=== PATIENT | female | born 1945 | race Caucasian/White ===

== ENCOUNTER 2017-04-07 09:42 | Inpatient (IN) ==
[2017-04-08] MEDS ORDERED: *HR* OxyCODONE/APAP 7.5/325 TABLET PO PRN (15:20)
[2017-04-08] MEDS: Sennosides/Docusate Sodium TABLET PO PRN (16:17)
[2017-04-08] MEDS: *HR* OxyCODONE/APAP 7.5/325 TABLET PO PRN (16:18)
[2017-04-08] MEDS: APIXABAN 5 MG TABLET PO SCH (20:32)
[2017-04-09] MEDS: *HR* OxyCODONE/APAP 7.5/325 TABLET PO PRN ×2 (04:09→17:25)
[2017-04-09 05:45] LABS: INR 1.6; Prothrombin Time 17.5 Seconds (9.4-12.1)
[2017-04-09 05:48] LABS: Activated Partial Thrombo Time 28.9 Seconds (26.0-36.0)
[2017-04-09 05:53] LABS: Calcium 8.3 mg/dL (8.6-10.8); Potassium 5.2 mEq/L (3.5-4.5)
[2017-04-09 05:54] LABS: Basophils % 0.3 %; Eosinophils # 0.1 K/mcL (0.0-0.6); Eosinophils % 1.9 %; Hematocrit 25.7 % (35.3-44.9); Hemoglobin 8.6 g/dL (11.5-15.4); Immature Granulocytes % 0.7 % (0-4); Lymphocytes # 1.7 K/mcL (0.6-4.6); Lymphocytes % 28.9 %; Mean Corpuscular HGB Conc 33.5 g/dL (31.6-35.5); Mean Corpuscular Hemoglobin 32.2 pg (28.0-33.3); Mean Corpuscular Volume 96.3 fL (83.0-100.0); Mean Platelet Volume 11.7 fL (9.4-12.4); Monocytes # 0.9 K/mcL (0.0-1.3); Monocytes % 15.1 %; Neutrophils # 3.1 K/mcL (1.6-8.9); Platelet Count 116 K/mcL (140-400); Red Blood Count 2.67 M/mcL (3.82-4.97); Red Cell Distribution Width 13.8 % (11.5-14.5); Segmented Neutrophils % 53.1 %
[2017-04-09] MEDS: Sennosides/Docusate Sodium TABLET PO PRN (08:08)
[2017-04-09] MEDS: APIXABAN 5 MG TABLET PO SCH ×2 (08:09→20:25)
[2017-04-09] MEDS: Torsemide 20 MG TABLET PO SCH (08:09)
[2017-04-10 05:47] LABS: Basophils % 0.1 %; Eosinophils # 0.1 K/mcL (0.0-0.6); Eosinophils % 1.6 %; Hematocrit 27.9 % (35.3-44.9); Hemoglobin 9.2 g/dL (11.5-15.4); Immature Granulocytes % 1.1 % (0-4); Lymphocytes # 2.5 K/mcL (0.6-4.6); Lymphocytes % 32.8 %; Mean Corpuscular Hemoglobin 31.7 pg (28.0-33.3); Mean Corpuscular Volume 96.2 fL (83.0-100.0); Mean Platelet Volume 11.2 fL (9.4-12.4); Monocytes # 0.9 K/mcL (0.0-1.3); Monocytes % 12.6 %; Neutrophils # 3.9 K/mcL (1.6-8.9); Platelet Count 144 K/mcL (140-400); Red Cell Distribution Width 13.7 % (11.5-14.5); Segmented Neutrophils % 51.8 %
[2017-04-10 05:59] LABS: Calcium 8.5 mg/dL (8.6-10.8); Potassium 4.5 mEq/L (3.5-4.5)
[2017-04-10] MEDS: APIXABAN 5 MG TABLET PO SCH ×2 (08:43→20:19)
[2017-04-10] MEDS: Torsemide 20 MG TABLET PO SCH (08:43)
[2017-04-10] MEDS: *HR* OxyCODONE/APAP 7.5/325 TABLET PO PRN ×2 (08:45→20:22)
--- NOTE | 2017-04-10 15:04 | Internal Med History&Physical ---
Date of Encounter: 04/10/17 Time of Encounter: 15:02 Assessment and Plan (1) Cervical vertebral closed fracture Current visit: No Status: Acute Patient is here for rehabilitation status post her accident (2) Crush fracture of thoracic vertebra Current visit: No Status: Acute (3) Atrial fibrillation Current visit: No Status: Chronic (4) History of total right hip arthroplasty Current visit: Yes Status: Acute patient had a right total hip arthroplasty. She is here for re- Internal Medicine - H&P: HPI Chief complaint: Right hip pain with any activity Admitted From: Hospital to Hospital Transfer Plans for Post Hospital Care: Home History of present illness: Ms. Ferro is a 71 year old female Patient had a right total hip replacement for osteoarthritis Past Med Surg Social Fam HX - Past Medical History Medical history: arthritis, atrial fibrillation, coronary artery disease, hypertension, renal disease Psychiatric history: no psych history - Past Surgical History Surgical History: cholecystectomy - Social History Smoking Status: Current every day smoker Packs per day: 1/2 Smokeless Tobacco Status: No Alcohol use: none Drug use: none - Family History Mother Hx Family Endocrine Disorder: Yes (diabetes) Father Hx Family Endocrine Disorder: Yes (diabetes) Internal Medicine - H&P: Meds Meloxicam [Mobic] 15 mg PO DAILY 01/28/16 [History] Potassium Chloride [K-Tab ER] 20 meq PO DAILY 01/28/16 [History] Torsemide [Demadex] 50 mg PO DAILY 01/28/16 [History] Apixaban [Eliquis] 5 mg PO BID 04/08/17 [History] Carvedilol [Coreg] 12.5 mg PO BIDWM 04/08/17 [History] OxyCODONE/APAP 7.5/325 [Percocet 7.5/325 MG] 1 each PO Q4HR PRN 04/08/17 [ History] OxyCODONE/APAP 7.5/325 [Percocet 7.5/325 MG] 2 each PO Q4HR PRN 04/08/17 [ History] Allergies Penicillins Allergy (Verified 01/28/16 17:57) Hives All Systems PM: A 10-system review of systems was performed and is negative for pertinent findings except as documented above in the HPI. - Constitutional Vitals: Temp Pulse Resp BP Pulse Ox 97.8 F 89 18 136/71 97 04/10/17 12:00 04/10/17 13:34 04/10/17 13:34 04/10/17 13:34 04/10/17 13:34 - Head Head exam: Present: atraumatic, normal inspection, normocephalic - Neck Neck exam general surgery: Present: supple, trachea midline. Absent: lymphadenopathy - Respiratory Respiratory exam: Present: CTAB. Absent: accessory muscle use, rales, rhonchi, wheezes - Cardiovascular Cardiovascular exam: Present: RRR, +S1, +S2. Absent: diastolic murmur, gallop, rubs, systolic murmur Internal Med - H&P Results - Labs CBC & Chem 7: 04/10/17 05:20 04/10/17 05:20 Labs: Short CBC 04/10/17 Range/Units 05:20 WBC 7.5 (4.3-11.1) K/mcL Hgb 9.2 L (11.5-15.4) g/dL Hct 27.9 L (35.3-44.9) % Plt Count 144 (140-400) K/mcL Neutrophils # 3.9 (1.6-8.9) K/mcL BMP 04/10/17 05:20 Sodium 138 Potassium 4.5 Chloride 108 Carbon Dioxide 20 BUN 45 H Creatinine 1.29 H Glucose 95 Calcium 8.5 L BUNs up a little bit off to follow this.
[2017-04-11 05:37] LABS: Calcium 8.4 mg/dL (8.6-10.8); Potassium 3.9 mEq/L (3.5-4.5)
[2017-04-11] MEDS: *HR* OxyCODONE/APAP 7.5/325 TABLET PO PRN ×2 (06:23→21:40)
[2017-04-11] MEDS: Torsemide 20 MG TABLET PO SCH (08:07)
[2017-04-11] MEDS: APIXABAN 5 MG TABLET PO SCH ×2 (08:08→20:09)
--- NOTE | 2017-04-11 13:25 | Internal Med Progress Note ---
Date of Encounter: 04/11/17 Time of Encounter: 13:23 - Assessment and plan (1) Cervical vertebral closed fracture Current Visit: No Status: Acute Assessment and plan: Patient's here for her hip replacement (2) Crush fracture of thoracic vertebra Current Visit: No Status: Acute Assessment and plan: Previous injury (3) Atrial fibrillation Current Visit: No Status: Chronic Assessment and plan: This is noted .current rate is controlled. (4) History of total right hip arthroplasty Current Visit: Yes Status: Acute Assessment and plan: Asians working with a therapist for her total hip replacement - Time Spent With Patient less than 15 minutes - Subjective Interval history: Patient has no real complaints at this point she just wants to hurry up and get back - Constitutional Vitals: Temp Pulse Resp BP Pulse Ox 97.9 F 74 16 117/71 97 04/11/17 07:16 04/11/17 07:16 04/11/17 07:16 04/11/17 07:16 04/11/17 07:16 - Head Head exam: Present: normal inspection - Respiratory Respiratory exam: Present: CTAB. Absent: accessory muscle use, rales, rhonchi, wheezes - Cardiovascular Cardiovascular exam: Present: RRR, +S1, +S2. Absent: diastolic murmur, gallop, rubs, systolic murmur Internal Medicine: Result - Labs CBC & Chem 7: 04/10/17 05:20 04/11/17 05:15 Labs: BMP 04/11/17 05:15 Sodium 137 Potassium 3.9 Chloride 106 Carbon Dioxide 21 BUN 46 H Creatinine 1.35 H Glucose 97 Calcium 8.4 L Labs okay - ABG Interpretation ABG results: PT/INR, D-dimer PT 17.5 Seconds (9.4-12.1) H 04/09/17 05:00 Consult Discharge Plan - Plan Referrals: Surya Finney MD [Primary Care Provider] -
[2017-04-12] MEDS: *HR* OxyCODONE/APAP 7.5/325 TABLET PO PRN ×2 (04:43→20:25)
[2017-04-12] MEDS: Torsemide 20 MG TABLET PO SCH (07:30)
[2017-04-12] MEDS: APIXABAN 5 MG TABLET PO SCH ×2 (07:30→20:25)
[2017-04-12] MEDS: Sennosides/Docusate Sodium TABLET PO PRN (07:37)
--- NOTE | 2017-04-12 14:03 | Physical Med Progress Note ---
Date of Encounter: 04/12/17 Time of Encounter: 13:55 Physical Medicine-PN: Subj Interval history: PMR PCC note Patient was admitted for inpatient rehab following a right total hip arthroplasty. She is currently SBA with a wheeled walker 125 feet X 2. She has a 5 minute standing tolerance. She reported some nausea this am. She is progressing well with therapy. Plan for discharge to home with home health. Patient will continue with intensive PT/OT/TR. - Constitutional Vitals: Vital Signs Temp Pulse Resp BP Pulse Ox 04/12/17 12:57 85 18 103/67 97 04/12/17 06:57 98.4 F 85 18 103/67 97 04/11/17 19:59 97.5 F L 100 16 98 04/11/17 18:13 120/72 Intake and Output 04/11/17 04/12/17 04/12/17 23:59 07:59 15:59 Intake Total 120 / 120 100 / 100 240 / 240 Balance 120 / 120 100 / 100 240 / 240 Intake: Oral 120 / 120 100 / 100 240 / 240 Other: Meal Dinner Lunch Percent of Meal Consumed 95% 25% # Voids 1 1 Physical Medicine-PN: Obj Data - Labs CBC & Chem 7: 04/10/17 05:20 04/11/17 05:15 - ABG Interpretation ABG results: PT/INR, D-dimer PT 17.5 Seconds (9.4-12.1) H 04/09/17 05:00 Consult Discharge Plan - Plan Referrals: Surya Finney MD [Primary Care Provider] -
[2017-04-13] MEDS: *HR* OxyCODONE/APAP 7.5/325 TABLET PO PRN ×3 (04:35→22:08)
[2017-04-13] MEDS: Sennosides/Docusate Sodium TABLET PO PRN (04:35)
[2017-04-13] MEDS: APIXABAN 5 MG TABLET PO SCH ×2 (08:12→20:11)
[2017-04-13] MEDS: Torsemide 20 MG TABLET PO SCH (08:12)
--- NOTE | 2017-04-13 12:55 | Internal Med Progress Note ---
Date of Encounter: 04/13/17 Time of Encounter: 12:53 - Assessment and plan (1) Cervical vertebral closed fracture Current Visit: No Status: Acute Assessment and plan: Old injury (2) Crush fracture of thoracic vertebra Current Visit: No Status: Acute Assessment and plan: Old injury. (3) Atrial fibrillation Current Visit: No Status: Chronic Assessment and plan: Noted no evidence of uncontrolled heart rate (4) History of total right hip arthroplasty Current Visit: Yes Status: Acute Assessment and plan: Patient was here for the above-mentioned complaint and is taking therapy - Time Spent With Patient less than 15 minutes - Subjective Interval history: Only complaint is that the affected side. Have a scab lifted very far. But this will improve with time. She is cooperating and working with PT OT TR - Constitutional Vitals: Temp Pulse Resp BP Pulse Ox 97.3 F L 76 18 100/63 98 04/13/17 06:54 04/13/17 06:54 04/13/17 06:54 04/13/17 06:54 04/13/17 06:54 - Head Head exam: Present: atraumatic, normal inspection, normocephalic - Respiratory Respiratory exam: Present: CTAB. Absent: accessory muscle use, rales, rhonchi, wheezes - Cardiovascular Cardiovascular exam: Present: RRR, +S1, +S2. Absent: diastolic murmur, gallop, rubs, systolic murmur Internal Medicine: Result - Labs CBC & Chem 7: 04/10/17 05:20 04/11/17 05:15 Labs: BUN and creatinine are noted - ABG Interpretation ABG results: PT/INR, D-dimer PT 17.5 Seconds (9.4-12.1) H 04/09/17 05:00 Consult Discharge Plan - Plan Referrals: Surya Finney MD [Primary Care Provider] -
[2017-04-14 07:03] VITALS: BP 133/76
[2017-04-14] MEDS: APIXABAN 5 MG TABLET PO SCH (08:11)
[2017-04-14] MEDS: Torsemide 20 MG TABLET PO SCH (08:11)
--- NOTE | 2017-04-14 11:34 | Discharge Summary ---
Date of Encounter: 04/14/17 Time of Encounter: 11:32 - Discharge Diagnosis (1) Cervical vertebral closed fracture Priority: Secondary Status: Acute Qualifiers: Fracture morphology: burst- stable Qualified Code(s): S12.01XD - Stable burst fracture of first cervical vertebra, subsequent encounter for fracture with routine healing (2) Crush fracture of thoracic vertebra Priority: Secondary Status: Acute Qualifiers: Fracture healing: with routine healing Qualified Code(s): S22.008D - Other fracture of unspecified thoracic vertebra, subsequent encounter for fracture with routine healing (3) Atrial fibrillation Priority: Secondary Status: Chronic Qualifiers: Atrial fibrillation type: paroxysmal Qualified Code(s): I48.0 - Paroxysmal atrial fibrillation (4) History of total right hip arthroplasty Priority: Primary Status: Acute Comments: Patient's doing well will be discharged home today in the company of her family. She will have follow-up appointment with her surgeon and pain medication - Discharge Medications Home Medications: Meloxicam [Mobic] 15 mg PO DAILY 01/28/16 [History] Potassium Chloride [K-Tab ER] 20 meq PO DAILY 01/28/16 [History] Torsemide [Demadex] 50 mg PO DAILY 01/28/16 [History] Apixaban [Eliquis] 5 mg PO BID 04/08/17 [History] Carvedilol [Coreg] 12.5 mg PO BIDWM 04/08/17 [History] OxyCODONE/APAP 7.5/325 [Percocet 7.5/325 MG] 1 each PO Q4HR PRN 04/08/17 [ History] OxyCODONE/APAP 7.5/325 [Percocet 7.5/325 MG] 2 each PO Q4HR PRN 04/08/17 [ History] Allergies/Adverse Reactions: Allergies Penicillins Allergy (Verified 01/28/16 17:57) Hives Date of admission: 04/08/17 15:53 Primary care physician: Surya Finney MD Consults: 04/08/17 15:23 Consult to Occupational Therapy [CONS] Routine Comment: eval and tx Reason for Consult: eval and tx Consult to Physical Therapy [CONS] Routine Comment: eval and tx Reason for Consult: eval and tx Consult to Recreational Therapy [CONS] Routine Comment: Consult to Provider Relations Advocate [CONS] Routine Reason for SW Consult: discharge planning Discharging clinician: Max Schaeffer Anticipated date of discharge: 04/14/17 - Patient Status Disposition: Home Health Service Condition: Good Functional capacity at discharge: uses cane/walker Overall status at discharge: patient is progressing back to baseline - Discharge Instructions Follow Up With: Terry Pepe [Non-Partnered Physician] - 04/26/17 11:00 am Surya Finney MD [Primary Care Provider] - - Diet and Activity Activity: ambulate only with your walker Diet: advance to your usual diet Interval History: She was admitted to the rehabilitation unit status post total hip replacement and has done well Hospital course: Ms. Ferro is a 71 year old female Patient will be discharged home in company of her family today with follow-up appointment for her surgeon. - Time Spent with Patient Total time spent providing and/or coordinating discharge services: Less than 30 minutes - Constitutional Vitals: Temp Pulse Resp BP Pulse Ox 97.3 F L 86 18 133/76 98 04/14/17 07:02 04/14/17 07:02 04/14/17 07:02 04/14/17 07:02 04/14/17 07:02 - Head Head exam: Present: atraumatic, normal inspection, normocephalic - Neck Neck exam general surgery: Present: supple, trachea midline. Absent: lymphadenopathy - Respiratory Respiratory exam: Present: CTAB. Absent: accessory muscle use, rales, rhonchi, wheezes - Cardiovascular Cardiovascular exam: Present: RRR, +S1, +S2. Absent: diastolic murmur, gallop, rubs, systolic murmur - GI/Abdominal GI/Abdominal exam: Present: normal bowel sounds, soft, no peritoneal signs. Absent: distended, tenderness
--- NOTE | 2017-04-14 11:39 | Physician Discharge Referral ---
Home Health/Hosp Referral Info Transfer to: Home Health Provider in Charge Post Discharge: PCP - Diagnosis (1) Cervical vertebral closed fracture Priority: Secondary Status: Acute (2) Crush fracture of thoracic vertebra Priority: Secondary Status: Acute (3) Atrial fibrillation Priority: Secondary Status: Chronic (4) History of total right hip arthroplasty Priority: Primary Status: Acute - Respiratory Orders Smoking Cessation: Smoking cessation has been advised. For more information, call the [place] Tobacco Quit Line at 8-213-WGYH-NOW. - Diet/Nutrition Diet/Nutrition Orders: Regular - Activity Activity Orders: Walker - Services Needed Following services are medically necessary services: Nursing, Physical Therapy - Transfer Medications Home Medications: Meloxicam [Mobic] 15 mg PO DAILY 01/28/16 [History] Potassium Chloride [K-Tab ER] 20 meq PO DAILY 01/28/16 [History] Torsemide [Demadex] 50 mg PO DAILY 01/28/16 [History] Apixaban [Eliquis] 5 mg PO BID 04/08/17 [History] Carvedilol [Coreg] 12.5 mg PO BIDWM 04/08/17 [History] OxyCODONE/APAP 7.5/325 [Percocet 7.5/325 MG] 1 each PO Q4HR PRN 04/08/17 [ History] OxyCODONE/APAP 7.5/325 [Percocet 7.5/325 MG] 2 each PO Q4HR PRN 04/08/17 [ History] Allergies/Adverse Reactions: Allergies Penicillins Allergy (Verified 01/28/16 17:57) Hives Certification: Further, I certify that my clinical findings support that this patient is homebound (i.e. absences from home require considerable and taxing effort and are for medical reasons or yarsani services or infrequently or short duration when for other reasons) because: Homebound Reason: Patient requires assistance of a person or device to safely leave home Attestation: My signature below is to certify that this patient is under my care and that I, or nurse practitioner, or a physician's assistant therapy aide working with me, has a face-to -face encounter with this patient.
[2017-04-14] MEDS: *HR* OxyCODONE/APAP 7.5/325 TABLET PO PRN (12:48)
== END 2017-04-14 13:30 | disposition home health service (06) | DRG 561 ==
LOC: INPGRE 04-08 15:53
PROVIDERS: ADMIT Internal Medicine; ATTEND Internal Medicine

== ENCOUNTER 2018-12-13 13:26 | Inpatient (IN) ==
--- NOTE | 2018-12-13 15:18 | Internal Med History&Physical ---
Addendum entered and electronically signed by Desirae Saunders 12/16/18 13:57: I have personally performed a face to face evaluation on this patient. I have reviewed and agree with the care plan. Original Note: Date of Encounter: 12/13/18 Time of Encounter: 15:15 Assessment and Plan (1) Non-STEMI (non-ST elevated myocardial infarction) Current visit: Yes Status: Acute Patient was transferred to this facility for further rehabilitation due to deconditioning secondary to a non-STEMI FL. Patient was treated at [facility] medically. Patient with history of severe cardiomyopathy. Patient currently denies any chest discomforts or shortness of breath. Denies any palpitations. We will continue with current medications. Physical therapy evaluation pending. (2) Toe fracture Current visit: Yes Status: Acute Patient presented initially with complaints of pain to her right foot where she experienced a fracture of the fifth toe. Patient currently states that her pain is tolerable with current medications. Patient currently has a walking boot in place. No obvious injury or deformity noted to toe on inspection. We will continue with physical therapy and current plan of care. Qualifiers: Encounter type: subsequent encounter Fracture type: closed Phalanx: unspecified phalanx Fracture alignment: nondisplaced Laterality: right Fracture healing: with routine healing Qualified Code(s): S92.404D - Nondisplaced unspecified fracture of right great toe, subsequent encounter for fracture with routine healing (3) Cardiomyopathy Current visit: Yes Status: Chronic Patient with history of severe cardiomyopathy with a 25-35% ejection fraction. Patient currently has an ICD in place. Lungs are diminished throughout lower fills but no obvious congestion or dyspnea noted on exam. Patient denies any chest palpitations or discomforts. We will continue with current medications and physical therapy. Qualifiers: Cardiomyopathy type: unspecified Qualified Code(s): I42.9 - Cardiomyopathy, unspecified (4) Chronic renal failure Current visit: Yes Status: Chronic Patient with a long history of CHF and chronic renal failure. No acute issues at this time. Will monitor patient's renal status through serial labs. We will continue with current medications. Qualifiers: Chronic kidney disease stage: stage 4 (severe) Qualified Code(s): N18.4 - Chronic kidney disease, stage 4 (severe) (5) Diabetes Current visit: Yes Status: Chronic No acute issues at this time. We will continue to monitor patient's glucose with fingersticks and sliding scale coverage. Will review patient's fingerstick s to evaluate any titration needs of long-acting insulin. We will obtain a hemoglobin A1c on next blood draw. 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 Patient continues with irregular heart rate on exam but ventricular rate remains controlled less than 100. We will continue with current medications. Qualifiers: Atrial fibrillation type: paroxysmal Qualified Code(s): I48.0 - Paroxysmal atrial fibrillation Internal Medicine - H&P: HPI Chief complaint: Non-STEMI FL Admitted From: Hospital to Hospital Transfer Plans for Post Hospital Care: Home History of present illness: Ms. Ferro is a 73 year old female, who presented to the emergency department at an [facility] after injuring her right fifth toe, which was found to be fractured. Patient initially had issues with pain control to the toe and during her initial workup was found to have a non-STEMI FL. Patient has a history of coronary artery disease and severe cardiomyopathy with a 25-35% ejection fraction. Patient also was diagnosed with a urinary tract infection which she currently continues coverage on. Patient also has a history of stage IV chronic renal disease. Patient's recovery at [facility] was uneventful and she was transferred to this facility for further rehabilitation due to deconditioning. Patient states that her pain is fairly well-controlled to her right foot with current medications. Right foot remains in a walking boot. Patient denies any current chest discomforts or palpitations. Denies any dyspnea or productive cough. Past Med Surg Social Fam HX - Past Medical History Medical history: arthritis, atrial fibrillation, coronary artery disease, hypertension, renal disease Additional medical history: kidney disease r/t surgery Psychiatric history: no psych history - Past Surgical History Surgical History: cholecystectomy Additional surgical history: tubaligation - Social History Smoking Status: Current every day smoker Smokeless Tobacco Status: No Alcohol use: none Drug use: none - Family History Mother Hx Family Endocrine Disorder: Yes (diabetes) Father Hx Family Endocrine Disorder: Yes (diabetes) Internal Medicine - H&P: Meds Meloxicam [Mobic] 15 mg PO DAILY 01/28/16 [History] Potassium Chloride [K-Tab ER] 20 meq PO DAILY 01/28/16 [History] Torsemide [Demadex] 50 mg PO DAILY 01/28/16 [History] Apixaban [Eliquis] 5 mg PO BID 04/08/17 [History] Carvedilol [Coreg] 12.5 mg PO BIDWM 04/08/17 [History] OxyCODONE/APAP 7.5/325 [Percocet 7.5/325 MG] 1 each PO Q4HR PRN 04/08/17 [ History] OxyCODONE/APAP 7.5/325 [Percocet 7.5/325 MG] 2 each PO Q4HR PRN 04/08/17 [History] Allergy/AdvReac Type Severity Reaction Status Date / Time Penicillins Allergy Hives Verified 01/28/16 17:57 All Systems PM: A 10-system review of systems was performed and is negative for pertinent findings except as documented above in the HPI. - Constitutional Constitutional: as per HPI, no chills, no fever(s), no night sweats - EENT Eyes: as per HPI, no change in vision, no discharge, no pain, no photophobia Ears: no ear discharge, no ear pain, no tinnitus Nose, mouth and throat: no dysphagia, no nasal discharge, no neck pain, no sore throat - Cardiovascular Cardiovascular ROS IM: as per HPI, no chest pain, no diaphoresis, no dyspnea, no lightheadedness, no palpitations, no syncope - Respiratory Respiratory: as per HPI, no cough, no dyspnea, no wheezing, no excessive phlegm production - Gastrointestinal Gastrointestinal: as per HPI, no abdominal pain, no diarrhea, no hematemesis, no hematochezia, no melena, no nausea, no vomiting - Genitourinary Genitourinary: as per HPI, no change in urinary stream, no dysuria, no flank pain, no hematuria - Musculoskeletal Musculoskeletal ROS IM: as per HPI, no numbness, no tingling - Integumentary Integumentary IM: as per HPI, no rash, no unusual bruising - Neurological Neurological ROS: as per HPI, no confusion, no convulsions, no focal weakness, no numbness, no tingling, no tremor(s) - Hematologic/Lymphatic Hematologic/Lymphatic: no easy bruising - Constitutional General appearance: Present: A&O X 3, pleasant - Head Head exam: Present: atraumatic, normocephalic - Eye Eye exam: Present: PERRL, conjuntiva pink, sclera anicteric Pupils: Present: PERRL - Neck Neck exam general surgery: Present: supple, trachea midline. Absent: lymphadenopathy - Respiratory Respiratory exam: Present: CTAB. Absent: accessory muscle use, rales, rhonchi, wheezes Additional comments: Lungs are clear throughout upper mantilla and diminished basilar mantilla. Patient with distant breath sounds likely secondary to her obesity. Respiratory effort appears relaxed. No productive cough noted. - Cardiovascular Cardiovascular exam: Present: RRR, +S1, +S2. Absent: diastolic murmur, gallop, rubs, systolic murmur Additional comments: Heart sounds are distant. - GI/Abdominal GI/Abdominal exam: Present: normal bowel sounds, soft, no peritoneal signs. Absent: distended, tenderness - Extremities Exam Extremities exam: Present: warm, radial pulses palpable and symmetrical. Absent: calf tenderness, cyanotic, pedal edema Additional comments: Right foot with walking boot and place. Right fifth toe fracture site shows no deformity or obvious injury. - Neurological Exam Neurological exam: Present: CN II-XII intact, oriented X3, no focal deficits. Absent: pronater drift, facial droop, speech deficit - Skin Skin exam: Present: dry, intact
[2018-12-13] MEDS ORDERED: *HR* Acetaminophen w/Cod 300-30 mg 1 TAB TABLET PO PRN (16:15)
[2018-12-13] MEDS: predniSONE 10 MG TABLET PO SCH (18:13)
[2018-12-13] MEDS: cephALEXin 250 MG CAPSULE PO SCH (19:57)
[2018-12-13] MEDS: Apixaban 5 MG TABLET PO SCH (19:57)
[2018-12-14 06:04] LABS: Hematocrit 30.7 % (35.3-44.9); Hemoglobin 10.1 g/dL (11.5-15.4); Mean Corpuscular HGB Conc 32.9 g/dL (31.6-35.5); Mean Corpuscular Hemoglobin 30.4 pg (28.0-33.3); Mean Corpuscular Volume 92.5 fL (83.0-100.0); Mean Platelet Volume 11.2 fL (9.4-12.4); Platelet Count 165 K/mcL (140-400); Red Blood Count 3.32 M/mcL (3.82-4.97); Red Cell Distribution Width 14.9 % (11.5-14.5)
[2018-12-14 06:24] LABS: Albumin 2.6 g/dL (3.5-5.7); Albumin/Globulin Ratio 0.7 (1.1-2.2); Bilirubin,Total 0.8 mg/dL (0.3-1.0); Globulin 3.5 g/dL (2.4-3.5); Magnesium 2.1 mg/dL (1.6-2.6); Potassium 3.3 mEq/L (3.5-5.1); Total Protein 6.1 g/dL (6.4-8.9)
[2018-12-14 08:32] LABS: Estimated Average Glucose 105 mg/dl; Hemoglobin A1C 5.3 %
[2018-12-14] MEDS: cephALEXin 250 MG CAPSULE PO SCH ×3 (08:32→21:43)
[2018-12-14] MEDS: Torsemide 20 MG TABLET PO SCH (08:32)
[2018-12-14] MEDS: Apixaban 5 MG TABLET PO SCH ×2 (08:32→21:43)
[2018-12-14] MEDS: predniSONE 10 MG TABLET PO SCH ×2 (08:33→17:03)
--- NOTE | 2018-12-14 14:15 | Internal Med Progress Note ---
Addendum entered and electronically signed by Desirae Saunders 12/16/18 13:56: I have personally performed a face to face evaluation on this patient. I have reviewed and agree with the care plan. Original Note: Date of Encounter: 12/14/18 Time of Encounter: 14:13 - Assessment and plan (1) Non-STEMI (non-ST elevated myocardial infarction) Current Visit: Yes Status: Acute Assessment and plan: No acute issues. Patient denies any chest discomforts or palpitations. Vital signs are stable. We will continue with physical therapy. (2) Toe fracture Current Visit: Yes Status: Acute Assessment and plan: No acute issues. Patient continues to have walking boot to right foot. Patient has been bearing weight on right foot. We will continue with physical therapy. Patient states the pain has been very tolerable Qualifiers: Encounter type: subsequent encounter Fracture type: closed Phalanx: unspecified phalanx Fracture alignment: nondisplaced Laterality: right Fracture healing: with routine healing Qualified Code(s): S92.404D - Nondisplaced unspecified fracture of right great toe, subsequent encounter for fracture with routine healing (3) Cardiomyopathy Current Visit: Yes Status: Chronic Assessment and plan: No acute issues. Patient has diminished breath sounds but otherwise denies any productive cough or dyspnea. Vital signs stable. We will continue with current medications. Qualifiers: Cardiomyopathy type: unspecified Qualified Code(s): I42.9 - Cardiomyopathy, unspecified (4) Diabetes Current Visit: Yes Status: Chronic Assessment and plan: No acute issues. Patient's glucose is been fairly well controlled. We will continue with sliding scale coverage and review patient's medication regimen Qualifiers: Diabetes mellitus type: type 2 Diabetes mellitus long-term insulin use: unspecified long-term insulin use status Diabetes mellitus complication status: with unspecified complications Qualified Code(s): E11.8 - Type 2 diabetes mellitus with unspecified complications (5) Atrial fibrillation Current Visit: No Status: Chronic Assessment and plan: Patient continues in atrial fibrillation with irregular heart rate. Ventricular rate has been well controlled less than 100. We will continue with current medications. Qualifiers: Atrial fibrillation type: paroxysmal Qualified Code(s): I48.0 - Paroxysmal atrial fibrillation - Time Spent With Patient less than 15 minutes - Subjective Interval history: Patient appears relaxed and currently denies any discomforts or shortness of breath. Patient does state that she has had difficulty sleeping at night since she has been in the hospital. Patient states that physical therapy is been progressing well. - Constitutional Vitals: Temp Pulse Resp BP Pulse Ox 97.5 F L 70 18 150/83 98 12/14/18 12:00 12/14/18 12:00 12/14/18 12:00 12/14/18 12:00 12/14/18 12:00 General appearance: Present: A&O X 3, pleasant - Head Head exam: Present: atraumatic, normocephalic - Eye Eye exam: Present: PERRL, conjuntiva pink, sclera anicteric Pupils: Present: PERRL - Neck Neck exam general surgery: Present: supple, trachea midline. Absent: lymphadenopathy - Respiratory Respiratory exam: Present: CTAB. Absent: accessory muscle use, rales, rhonchi, wheezes Additional comments: Lungs are clear throughout upper mantilla and diminished to bases. Lung sounds are distant to lower fills secondary to obesity. Respiratory effort appears r elaxed. No productive cough. - Cardiovascular Cardiovascular exam: Present: RRR, +S1, +S2. Absent: diastolic murmur, gallop, rubs, systolic murmur - GI/Abdominal GI/Abdominal exam: Present: normal bowel sounds, soft, no peritoneal signs. Absent: distended, tenderness - Extremities Exam Extremities exam: Present: pedal edema, warm, radial pulses palpable and symmetrical. Absent: calf tenderness, cyanotic - Neurological Exam Neurological exam: Present: CN II-XII intact, oriented X3, no focal deficits. Absent: pronater drift, facial droop, speech deficit - Skin Skin exam: Present: dry, intact Internal Medicine: Result - Labs CBC & Chem 7: 12/14/18 04:30 12/14/18 04:30 Labs: Short CBC 12/14/18 Range/Units 04:30 WBC 12.9 H (4.3-11.1) K/mcL Hgb 10.1 L (11.5-15.4) g/dL Hct 30.7 L (35.3-44.9) % Plt Count 165 (140-400) K/mcL BMP 12/14/18 04:30 Sodium 136 Potassium 3.3 L Chloride 104 Carbon Dioxide 24 BUN 73 H Creatinine 1.27 H Glucose 138 H Calcium 8.0 L Liver Function 12/14/18 Range/Units 04:30 Total Bilirubin 0.8 (0.3-1.0) mg/dL AST 45 H (13-39) Units/L ALT 29 (7-52) Units/L Alkaline Phosphatase 174 H (34-104) Units/L Albumin 2.6 L (3.5-5.7) g/dL Consult Discharge Plan - Plan Referrals: NONE,PCP [Primary Care Provider] -
[2018-12-14] MEDS: Melatonin 3 MG TABLET PO PRN (21:43)
[2018-12-15] MEDS: Torsemide 20 MG TABLET PO SCH (08:12)
[2018-12-15] MEDS: Apixaban 5 MG TABLET PO SCH ×2 (08:12→20:08)
[2018-12-15] MEDS: predniSONE 10 MG TABLET PO SCH ×2 (08:13→17:51)
[2018-12-15] MEDS: cephALEXin 250 MG CAPSULE PO SCH ×3 (08:13→20:09)
[2018-12-15] MEDS: Melatonin 3 MG TABLET PO PRN (21:01)
[2018-12-15] MEDS: Acetaminophen 325 MG TABLET PO PRN (21:02)
[2018-12-16] MEDS: predniSONE 10 MG TABLET PO SCH ×2 (09:03→17:06)
[2018-12-16] MEDS: Acetaminophen 325 MG TABLET PO PRN ×2 (09:03→22:01)
[2018-12-16] MEDS: Torsemide 20 MG TABLET PO SCH (09:03)
[2018-12-16] MEDS: cephALEXin 250 MG CAPSULE PO SCH ×3 (09:04→20:40)
[2018-12-16] MEDS: Apixaban 5 MG TABLET PO SCH ×2 (09:04→20:40)
--- NOTE | 2018-12-16 13:53 | Internal Med Progress Note ---
Date of Encounter: 12/15/18 Time of Encounter: 13:30 - Subjective Interval history: - Assessment and plan (1) Non-STEMI (non-ST elevated myocardial infarction) Current Visit: Yes Status: Acute Assessment and plan: No acute issues. Plan per cardiology medical management. BP stable. Patient denies any chest discomforts or palpitations. Vital signs are stable. No current problem. We will continue with physical therapy. (2) Toe fracture Current Visit: Yes Status: Acute Assessment and plan: No acute issues. Patient continues to have walking boot to right foot. Patient has been bearing weight on right foot. We will continue with physical therapy. Patient states the pain has been more severe She refuses pain medications She has tinea pedis Qualifiers: Encounter type: subsequent encounter Fracture type: closed Phalanx: unspecified phalanx Fracture alignment: nondisplaced Laterality: right Fracture healing: with routine healing Qualified Code(s): S92.404D - Nondisplaced unspecified fracture of right great toe, subsequent encounter for fracture with routine healing (3) Cardiomyopathy Current Visit: Yes Status: Chronic Assessment and plan: No acute issues. Patient has diminished breath sounds but otherwise denies any productive cough or dyspnea. Vital signs stable. We will continue with current medications. Will recheck potassum level Qualifiers: Cardiomyopathy type: unspecified Qualified Code(s): I42.9 - Cardiomyopathy, unspecified (4) Diabetes Current Visit: Yes Status: Chronic Assessment and plan: No acute issues. Patient's glucose is been fairly well controlled. 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 Ventricular rate has been well controlled less than 100. We will continue with current medications. Qualifiers: Atrial fibrillation type: paroxysmal Qualified Code(s): I48.0 - Paroxysmal atrial fibrillation - Time Spent With Patient less than 15 minutes - Subjective Interval history: Patient reports pain to foot - states she does not want to take pain medication. Will take tylenol. She is not eating well and her serum albumen and K have been abnormal. Discussed encouraged to use ensure will recheck her labs She has not had BM says in 3 days will use miralax EXAM General appearance: Present: A&O X 3, pleasant - Head Head exam: Present: atraumatic, normocephalic - Eye Eye exam: Present: PERRL, conjuntiva pink, sclera anicteric Pupils: Present: PERRL - Neck Neck exam general surgery: Present: supple, trachea midline. - Respiratory Respiratory exam: Present: CTAB. Absent: accessory muscle use, rales, rhonchi, wheezes Additional comments: Lungs are clear bilateral - Cardiovascular Cardiovascular exam: Present: RRR, +S1, +S2. Absent: diastolic murmur, gallop, rubs, systolic murmur - GI/Abdominal GI/Abdominal exam: Present: normal bowel sounds, soft, no peritoneal signs. Absent: distended, tenderness - Extremities Exam Extremities exam: Present: trace pedal edema, warm, radial pulses palpable and symmetrical. Absent: calf tenderness, cyanotic - Neurological Exam Neurological exam: Present: CN II-XII intact, oriented X3, no focal deficits. Absent: pronater drift, facial droop, speech deficit - Skin Skin exam: Present: dry, intact scale and flake to feet dystrophic nails bilat Internal Medicine: Result - Labs CBC & Chem 7: 12/14/18 04:30 12/14/18 04:30 Labs: Short CBC 12/14/18 Range/Units 04:30 WBC 12.9 H (4.3-11.1) K/mcL Hgb 10.1 L (11.5-15.4) g/dL Hct 30.7 L (35.3-44.9) % Plt Count 165 (140-400) K/mcL BMP 12/14/18 04:30 Sodium 136 Potassium 3.3 L Chloride 104 Carbon Dioxide 24 BUN 73 H Creatinine 1.27 H Glucose 138 H Calcium 8.0 L Liver Function 12/14/18 Range/Units 04:30 Total Bilirubin 0.8 (0.3-1.0) mg/dL AST 45 H (13-39) Units/L ALT 29 (7-52) Units/L Alkaline Phosphatase 174 H (34-104) Units/L Albumin 2.6 L (3.5-5.7) g/dL - Constitutional Vitals: Temp Pulse Resp BP Pulse Ox 97.6 F 70 16 136/80 96 12/16/18 07:00 12/16/18 07:00 12/16/18 07:00 12/16/18 07:00 12/16/18 07:00 General appearance: Present: A&O X 3, pleasant Internal Medicine: Result - Labs CBC & Chem 7: 12/14/18 04:30 12/14/18 04:30 Consult Discharge Plan - Plan Referrals: NONE,PCP [Primary Care Provider] -
--- NOTE | 2018-12-16 13:59 | Internal Med Progress Note ---
Date of Encounter: 12/16/18 Time of Encounter: 01:38 - Subjective Interval history: - Assessment and plan (1) Non-STEMI (non-ST elevated myocardial infarction) Current Visit: Yes Status: Acute Assessment and plan: No acute issues. Plan per cardiology medical management. BP stable. Patient denies any chest discomforts or palpitations. Vital signs are stable. No current problem. We will continue with physical therapy. (2) Toe fracture Current Visit: Yes Status: Acute Assessment and plan: No acute issues. Patient continues to have walking boot to right foot. Patient has been bearing weight on right foot. We will continue with physical therapy. Patient states the pain has been more severe She refuses pain medications She has tinea pedis Qualifiers: Encounter type: subsequent encounter Fracture type: closed Phalanx: unspecified phalanx Fracture alignment: nondisplaced Laterality: right Fracture healing: with routine healing Qualified Code(s): S92.404D - Nondisplaced unspecified fracture of right great toe, subsequent encounter for fracture with routine healing (3) Cardiomyopathy Current Visit: Yes Status: Chronic Assessment and plan: No acute issues. Patient has diminished breath sounds but otherwise denies any productive cough or dyspnea. Vital signs stable. We will continue with current medications. Will recheck potassum level and CBC Qualifiers: Cardiomyopathy type: unspecified Qualified Code(s): I42.9 - Cardiomyopathy, unspecified (4) Diabetes Current Visit: Yes Status: Chronic Assessment and plan: No acute issues. Patient's glucose is been fairly well controlled. We will continue with sliding scale coverage and review patient's medication regimen Qualifiers: Diabetes mellitus type: type 2 Diabetes mellitus correction insulin use: unspecified correction insulin use status Diabetes mellitus complication status: with unspecified complications Qualified Code(s): E11.8 - Type 2 diabe jenna mellitus with unspecified complications (5) Atrial fibrillation Current Visit: No Status: Chronic Assessment and plan: Patient continues in atrial fibrillation with irregular heart rate. Ventricular rate has been well controlled less than 100. We will continue with current medications. Qualifiers: Atrial fibrillation type: paroxysmal Qualified Code(s): I48.0 - Paroxysmal atrial fibrillation - Time Spent With Patient less than 15 minutes - Subjective Interval history: Patient reports pain to foot - states she does not want to take pain medication. Will take tylenol. Sleep sometimes problematic She is not eating well and her serum albumen and K have been abnormal. Discussed encouraged to use ensure will recheck her labs EXAM General appearance: Present: A&O X 3, pleasant - Head Head exam: Present: atraumatic, normocephalic - Eye Eye exam: Present: PERRL, conjuntiva pink, sclera anicteric Pupils: Present: PERRL - Neck Neck exam general surgery: Present: supple, trachea midline. - Respiratory Respiratory exam: Present: CTAB. Absent: accessory muscle use, rales, rhonchi, wheezes Additional comments: Lungs are clear bilateral - Cardiovascular Cardiovascular exam: Present: RRR, +S1, +S2. Absent: diastolic murmur, gallop, rubs, systolic murmur - GI/Abdominal GI/Abdominal exam: Present: normal bowel sounds, soft, no peritoneal signs. Absent: distended, tenderness - Extremities Exam Extremities exam: Present: trace pedal edema, warm, radial pulses palpable and symmetrical. Absent: calf tenderness, cyanotic - Neurological Exam Neurological exam: Present: CN II-XII intact, oriented X3, no focal deficits. Absent: pronater drift, facial droop, speech deficit - Skin Skin exam: Present: dry, intact scale and flake to feet dystrophic nails bilat Internal Medicine: Result - Labs CBC & Chem 7: 12/14/18 04:30 12/14/18 04:30 Labs: Short CBC 12/14/18 Range/Units 04:30 WBC 12.9 H (4.3-11.1) K/mcL Hgb 10.1 L (11.5-15.4) g/dL Hct 30.7 L (35.3-44.9) % Plt Count 165 (140-400) K/mcL BMP 12/14/18 04:30 Sodium 136 Potassium 3.3 L Chloride 104 Carbon Dioxide 24 BUN 73 H Creatinine 1.27 H Glucose 138 H Calcium 8.0 L Liver Function 12/14/18 Range/Units 04:30 Total Bilirubin 0.8 (0.3-1.0) mg/dL AST 45 H (13-39) Units/L ALT 29 (7-52) Units/L Alkaline Phosphatase 174 H (34-104) Units/L Albumin 2.6 L (3.5-5.7) g/dL - Constitutional Vitals: Temp Pulse Resp BP Pulse Ox 97.6 F 70 16 136/80 96 12/16/18 07:00 12/16/18 07:00 12/16/18 07:00 12/16/18 07:00 12/16/18 07:00 General appearance: Present: A&O X 3, pleasant Internal Medicine: Result - Labs CBC & Chem 7: 12/14/18 04:30 12/14/18 04:30 Consult Discharge Plan - Plan Referrals: NONE,PCP [Primary Care Provider] -
[2018-12-16] MEDS: Melatonin 3 MG TABLET PO PRN (22:01)
[2018-12-17 07:55] LABS: Basophils % 0.1 %; Eosinophils # 0.1 K/mcL (0.0-0.6); Hematocrit 36.7 % (35.3-44.9); Hemoglobin 12.3 g/dL (11.5-15.4); Lymphocytes # 2.3 K/mcL (0.6-4.6); Lymphocytes % 17.2 %; Mean Corpuscular HGB Conc 33.5 g/dL (31.6-35.5); Mean Corpuscular Volume 92.4 fL (83.0-100.0); Mean Platelet Volume 11.2 fL (9.4-12.4); Platelet Count 199 K/mcL (140-400); Red Blood Count 3.97 M/mcL (3.82-4.97); Red Cell Distribution Width 15.7 % (11.5-14.5); Segmented Neutrophils % 73.7 %
[2018-12-17 08:08] LABS: Calcium 8.6 mg/dL (8.6-10.3); Potassium 3.5 mEq/L (3.5-5.1)
[2018-12-17] MEDS: Acetaminophen 325 MG TABLET PO PRN ×2 (08:47→21:50)
[2018-12-17] MEDS: Torsemide 20 MG TABLET PO SCH (08:48)
[2018-12-17] MEDS: cephALEXin 250 MG CAPSULE PO SCH ×3 (08:49→19:49)
[2018-12-17] MEDS: predniSONE 10 MG TABLET PO SCH ×2 (08:50→16:00)
[2018-12-17] MEDS: Apixaban 5 MG TABLET PO SCH ×2 (08:50→19:49)
--- NOTE | 2018-12-17 14:36 | Internal Med Progress Note ---
Addendum entered and electronically signed by Bj Ennis MD 12/17/18 16:08: I have personally performed a face to face evaluation on this patient. I have r eviewed and agree with the care plan. History and Exam by me shows: Patient is concerned about her foot pain, which was not evaluated per her, time of her hospitalization. She denies chest pain, chest tightness or misery, etc. Breathing seems to be normal. No other intercurrent problems. Discussed care with other providers and/or nursing. Patient has no complaint of chest discomfort, dyspnea, orthopnea, palpitations, nausea or vomiting, constipation or diarrhea, other changes in bowel habits, difficulty with urination, rash or itching, or other new complaints, except as mentioned above. Review of systems is otherwise negative. Examination: (Except as mentioned above): General: In no apparent distress. Alert and oriented 3. Nondiaphoretic. Head: Atraumatic and normocephalic. Respiratory: No use of accessory muscles. Lungs are clear throughout. Normal airflow. Cardiovascular: Regular rate and rhythm without murmur appreciated. Abdomen: Bowel sounds are normal. No hepatosplenomegaly mass or tenderness appreciated. Obese and therefore difficult to palpate deeply. Extremities: No cyanosis clubbing or edema. Skin: Warm and non-diaphoretic with no new lesions noted. Addendum entered and electronically signed by Galen Figueredo CNP 12/17/18 14:54: Please disregard patient problem of constipation. Patient currently denies any constipation. This portion of the exam was documented on the wrong patient. Original Note: Date of Encounter: 12/17/18 Time of Encounter: 14:34 - Assessment and plan (1) Non-STEMI (non-ST elevated myocardial infarction) Current Visit: Yes Status: Acute Assessment and plan: No acute issues. Patient denies any chest discomforts or palpitations. Vital signs are stable. We will continue with physical therapy. (2) Toe fracture Current Visit: Yes Status: Acute Assessment and plan: With complaints of continued pain to her right foot which she describes as a burning type pain to the top of her foot and states that during movement or when she bears weight that the pain becomes sharp and radiates up to her knee. Patient continues to have walking boot to right foot. Patient has been bearing weight on right foot, but states that her pain increases when she bears weight.. We will continue with physical therapy. Patient states that her pain has been tolerable with current medications. We will have patient followed up with Dr. Blevins, orthopedic surgeon later this week during his office today. Qualifiers: Encounter type: subsequent encounter Fracture type: closed Phalanx: unspecified phalanx Fracture alignment: nondisplaced Laterality: right Fracture healing: with routine healing Qualified Code(s): S92.404D - Nondisplaced unspecified fracture of right great toe, subsequent encounter for fracture with routine healing (3) Cardiomyopathy Current Visit: Yes Status: Chronic Assessment and plan: No acute issues. Patient has diminished breath sounds but otherwise denies any productive cough or dyspnea. Vital signs stable. We will continue with current medications. Qualifiers: Cardiomyopathy type: unspecified Qualified Code(s): I42.9 - Cardiomyopathy, unspecified (4) Diabetes Current Visit: Yes Status: Chronic Assessment and plan: No acute issues. Patient's glucose is been fairly well controlled. 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 Ventricular rate has been well controlled less than 100. We will continue with current medications. Qualifiers: Atrial fibrillation type: paroxysmal Qualified Code(s): I48.0 - Paroxysmal atrial fibrillation (6) Constipation Current Visit: Yes Status: Acute Assessment and plan: Patient with complaints of several days of constipation. Abdomen appears nonacute. Patient denies any nausea. We will give a bottle of mag citrate and review patient's scheduled laxatives Qualifiers: Constipation type: unspecified constipation type Qualified Code(s): K59.00 - Constipation, unspecified - Time Spent With Patient less than 15 minutes - Subjective Interval history: Patient appears relaxed and currently denies any discomforts or shortness of b reath. Patient does complain of continued pain to her right foot which she describes as a burning type pain which changes to a sharp pain during range of motion at radiates up to her knee. Patient states that she is unaware how she fractured her toe hard to admission. Patient denies any decreased sensation. Patient states that physical therapy is been progressing well. Patient does have complaints of constipation stating she has not had a bowel movement in the last 4-5 days. Denies any abdominal cramping or nausea. - Constitutional Vitals: Temp Pulse Resp BP Pulse Ox 97.8 F 70 16 136/76 97 12/17/18 06:50 12/17/18 06:50 12/17/18 06:50 12/17/18 06:50 12/17/18 06:50 General appearance: Present: A&O X 3, pleasant - Head Head exam: Present: atraumatic, normocephalic - Eye Eye exam: Present: PERRL, conjuntiva pink, sclera anicteric Pupils: Present: PERRL - Neck Neck exam general surgery: Present: supple, trachea midline. Absent: lymphadenopathy - Respiratory Respiratory exam: Present: CTAB. Absent: accessory muscle use, rales, rhonchi, wheezes Additional comments: Lungs are clear throughout upper mantilla and diminished basilar mantilla. Respiratory effort appears relaxed while at rest. - Cardiovascular Cardiovascular exam: Present: RRR, +S1, +S2. Absent: diastolic murmur, gallop, rubs, systolic murmur - GI/Abdominal GI/Abdominal exam: Present: normal bowel sounds, soft, no peritoneal signs. Absent: distended, tenderness - Extremities Exam Extremities exam: Present: warm, radial pulses palpable and symmetrical. Absent: calf tenderness, cyanotic, pedal edema Additional comments: Right foot is in a orthopedic walking boot. No obvious injury or deformity noted to right foot or toes. No erythema or edema. - Neurological Exam Neurological exam: Present: CN II-XII intact, oriented X3, no focal deficits. Absent: pronater drift, facial droop, speech deficit - Skin Skin exam: Present: dry, intact Internal Medicine: Result - Labs CBC & Chem 7: 12/17/18 07:45 12/17/18 07:45 Labs: Short CBC 12/17/18 Range/Units 07:45 WBC 13.5 H (4.3-11.1) K/mcL Hgb 12.3 D (11.5-15.4) g/dL Hct 36.7 (35.3-44.9) % Plt Count 199 (140-400) K/mcL Neutrophils # 10.0 H (1.6-8.9) K/mcL BMP 12/17/18 07:45 Sodium 136 Potassium 3.5 Chloride 97 L Carbon Dioxide 32 H BUN 56 H Creatinine 1.16 Glucose 108 H Calcium 8.6 Consult Discharge Plan - Plan Referrals: Griffin Fraire MD [Partnered Physician] - 12/18/18 9:30 am ([place] 12/18/18 @ 09:30am, xrays to be performed today) NONE,PCP [Primary Care Provider] -
[2018-12-17 18:54] LABS: Bilirubin,Urine Negative (Negative); Blood,Urine Moderate (Negative); Clarity,Urine Slightly Cloudy (Clear); Glucose,Urine (UA) Normal (Normal); Ketones,Urine Negative (Negative); Leukocyte Esterase,Urine Negative (Negative); Nitrite,Urine Negative (Negative); Protein,Urine Negative (Neg-Trace); Specific Gravity,Urine <= 1.005 (1.010-1.025); Urobilinogen,Urine Normal (Normal)
[2018-12-17 18:57] LABS: Color,Urine Yellow (Yellow)
[2018-12-17 18:59] LABS: Squamous Epithelial Cell,Urine Few per lpf (None-Few)
[2018-12-17] MEDS: Melatonin 3 MG TABLET PO PRN (21:51)
[2018-12-18] MEDS: predniSONE 10 MG TABLET PO SCH ×2 (10:51→16:46)
[2018-12-18] MEDS: cephALEXin 250 MG CAPSULE PO SCH ×3 (10:52→21:44)
[2018-12-18] MEDS: Apixaban 5 MG TABLET PO SCH ×2 (10:52→21:43)
[2018-12-18] MEDS: Acetaminophen 325 MG TABLET PO PRN (10:52)
[2018-12-18] MEDS: Torsemide 20 MG TABLET PO SCH (10:53)
[2018-12-18] MEDS: traMADol 50 MG TABLET PO PRN (13:23)
[2018-12-18] MEDS: Cholecalciferol (D-3) 1,000 UNIT TABLET PO SCH (13:24)
[2018-12-19] MEDS: traMADol 50 MG TABLET PO PRN ×3 (06:05→22:54)
[2018-12-19] MEDS: cephALEXin 250 MG CAPSULE PO SCH ×3 (08:18→20:28)
[2018-12-19] MEDS: Apixaban 5 MG TABLET PO SCH ×2 (08:18→20:28)
[2018-12-19] MEDS: Cholecalciferol (D-3) 1,000 UNIT TABLET PO SCH (08:19)
[2018-12-19] MEDS: predniSONE 10 MG TABLET PO SCH ×2 (08:19→17:14)
[2018-12-19] MEDS: Torsemide 20 MG TABLET PO SCH (08:20)
--- NOTE | 2018-12-19 11:07 | Internal Med Progress Note ---
Addendum entered and electronically signed by Bj Ennis MD 12/19/18 11:40: I have personally performed a face to face evaluation on this patient. I have r eviewed and agree with the care plan. History and Exam by me shows: The patient was evaluated by me yesterday but the note was not complete. This documentation is being completed today for that reason. Patient is feeling better although her foot still hurts. She is pleased to have no fracture and plan even though it persists. She is otherwise doing okay. Discussed care with other providers and/or nursing. Patient has no complaint of chest discomfort, dyspnea, orthopnea, palpitations, nausea or vomiting, constipation or diarrhea, other changes in bowel habits, difficulty with urination, rash or itching, or other new complaints, except as mentioned above. Review of systems is otherwise negative. Examination: (Except as mentioned above): General: In no apparent distress. Alert and oriented 3. Nondiaphoretic. Head: Atraumatic and normocephalic. Respiratory: No use of accessory muscles. Lungs are clear throughout. Normal airflow. Cardiovascular: Regular rate and rhythm without murmur appreciated. Abdomen: Bowel sounds are normal. No hepatosplenomegaly mass or tenderness appreciated. Obese and therefore difficult to palpate deeply. Extremities: No cyanosis clubbing or edema. Skin: Warm and non-diaphoretic with no new lesions noted. Original Note: Date of Encounter: 12/18/18 Time of Encounter: 11:03 - Assessment and plan (1) Obesity, morbid Current Visit: Yes Status: Chronic (2) Atrial fibrillation Current Visit: Yes Status: Chronic Assessment and plan: Rate and rhythm controlled. Continue Coreg and eloquis Qualifiers: Atrial fibrillation type: paroxysmal Qualified Code(s): I48.0 - Paroxysmal atrial fibrillation (3) Non-STEMI (non-ST elevated myocardial infarction) Current Visit: Yes Status: Acute Assessment and plan: Continue PT and OT. Denies chest pain. (4) Cardiomyopathy Current Visit: Yes Status: Chronic Assessment and plan: denies chest pain Qualifiers: Cardiomyopathy type: unspecified Qualified Code(s): I42.9 - Cardiomyopathy, unspecified (5) Diabetes Current Visit: Yes Status: Chronic Assessment and plan: Controlled with current medication. Monitor fingerstick blood sugar. Will adjust medicines as necessary. Last hemoglobin A-1 C5 .3. 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 Was seen today. Has follow-up visit and one week. Continue walking boot. Weight bearing as tolerated. Qualifiers: Encounter type: subsequent encounter Fracture type: closed Phalanx: unspecified phalanx Fracture alignment: nondisplaced Laterality: right Fracture healing: with routine healing Qualified Code(s): S92.404D - Non displaced unspecified fracture of right great toe, subsequent encounter for fracture with routine healing - Time Spent With Patient less than 15 minutes - Subjective Interval history: Participating well with therapy. Went to see Dr. Montemayor today for right toe fracture. No new orders. Continue walking boot. No restrictions on weight bearing. Patient denies fever, chills, nausea, vomiting or diarrhea. Denies chest pain or shortness of breath. Maintaining appetite and hydration. - Constitutional Vitals: Temp Pulse Resp BP Pulse Ox 97.3 F L 71 16 144/68 98 12/19/18 07:00 12/19/18 07:00 12/19/18 07:00 12/19/18 07:00 12/19/18 07:00 General appearance: Present: A&O X 3, pleasant, obese - Head Head exam: Present: atraumatic, normocephalic - Eye Eye exam: Present: PERRL, conjuntiva pink, sclera anicteric Pupils: Present: PERRL - Neck Neck exam general surgery: Present: supple, trachea midline. Absent: lymphadenopathy - Respiratory Respiratory exam: Present: CTAB. Absent: accessory muscle use, rales, rhonchi, wheezes - Cardiovascular Cardiovascular exam: Present: RRR, +S1, +S2. Absent: diastolic murmur, gallop, rubs, systolic murmur - GI/Abdominal GI/Abdominal exam: Present: normal bowel sounds, soft, no peritoneal signs. Absent: distended, tenderness - Extremities Exam Extremities exam: Present: pedal edema, warm, radial pulses palpable and symmetrical. Absent: calf tenderness, cyanotic Additional comments: right foot in walking boot. - Neurological Exam Neurological exam: Present: CN II-XII intact, oriented X3, no focal deficits. Absent: pronater drift, facial droop, speech deficit - Skin Skin exam: Present: dry, intact Internal Medicine: Result - Labs CBC & Chem 7: 12/17/18 07:45 12/17/18 07:45 Consult Discharge Plan - Plan Referrals: Griffin Fraire MD [Partnered Physician] - 12/18/18 9:30 am ([place] 12/18/18 @ 09:30am, xrays to be performed today) NONE,PCP [Primary Care Provider] -
--- NOTE | 2018-12-19 14:01 | Internal Med Progress Note ---
Addendum entered and electronically signed by Bj Ennis MD 12/20/18 12:33: I have personally performed a face to face evaluation on this patient. I have r eviewed and agree with the care plan. History and Exam by me shows: The patient was evaluated by me yesterday but the note was not complete. This documentation is being completed today for that reason. Patient is feeling generally well and has had problems with pain in her foot, as before. However, she is relieved to have had an orthopedic evaluation. Discussed care with other providers and/or nursing. Patient has no complaint of chest discomfort, dyspnea, orthopnea, palpitations, nausea or vomiting, constipation or diarrhea, other changes in bowel habits, difficulty with urination, rash or itching, or other new complaints, except as mentioned above. Review of systems is otherwise negative. Examination: (Except as mentioned above): General: In no apparent distress. Alert and oriented 3. Nondiaphoretic. Head: Atraumatic and normocephalic. Respiratory: No use of accessory muscles. Lungs are clear throughout. Normal airflow. Cardiovascular: Regular rate and rhythm without murmur appreciated. Abdomen: Bowel sounds are normal. No hepatosplenomegaly mass or tenderness appreciated. Obese and therefore difficult to palpate deeply. Extremities: No cyanosis clubbing or edema. Skin: Warm and non-diaphoretic with no new lesions noted. Original Note: Date of Encounter: 12/19/18 Time of Encounter: 13:59 - Assessment and plan (1) Obesity, morbid Current Visit: Yes Status: Chronic (2) Atrial fibrillation Current Visit: Yes Status: Chronic Assessment and plan: Rate and rhythm controlled. Continue Coreg and eliquis Qualifiers: Atrial fibrillation type: paroxysmal Qualified Code(s): I48.0 - Paroxysmal atrial fibrillation (3) Non-STEMI (non-ST elevated myocardial infarction) Current Visit: Yes Status: Acute Assessment and plan: Continue PT and OT. Denies chest pain. f/u with cardiology as scheduled. (4) Cardiomyopathy Current Visit: Yes Status: Chronic Assessment and plan: denies chest pain or increase in SOB. f/u with cardiology. Qualifiers: Cardiomyopathy type: unspecified Qualified Code(s): I42.9 - Cardiomyopathy, unspecified (5) Diabetes Current Visit: Yes Status: Chronic Assessment and plan: Controlled with current medication. Monitor fingerstick blood sugar. Will adjust medicines as necessary. Last hemoglobin A-1 C5 .3. 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 Has follow-up visit inone week. Continue walking boot. Weight bearing as tolerated. Qualifiers: Encounter type: subsequent encounter Fracture type: closed Phalanx: unspecified phalanx Fracture alignment: nondisplaced Laterality: right Fracture healing: with routine healing Qualified Code(s): S92.404D - Nondisplaced unspecified fracture of right great toe, subsequent encounter for fracture with routine healing - Time Spent With Patient less than 15 minutes - Subjective Interval history: Participating well with therapy. toe fracture to right foot, pain medications effective. Continue walking boot. No restrictions on weight bearing. Patient denies fever, chills, nausea, vomiting or diarrhea. Denies chest pain or shortness of breath. Maintaining appetite and hydration. - Constitutional Vitals: Temp Pulse Resp BP Pulse Ox 97.3 F L 71 16 144/68 98 12/19/18 07:00 12/19/18 07:00 12/19/18 07:00 12/19/18 07:00 12/19/18 07:00 General appearance: Present: cooperative, A&O X 3, pleasant, obese, answers questions appropriately - Head Head exam: Present: atraumatic, normocephalic - Eye Eye exam: Present: PERRL, conjuntiva pink, sclera anicteric Pupils: Present: PERRL - Neck Neck exam general surgery: Present: supple, trachea midline. Absent: lymphadenopathy - Respiratory Respiratory exam: Present: CTAB. Absent: accessory muscle use, rales, rhonchi, wheezes - Cardiovascular Cardiovascular exam: Present: RRR, +S1, +S2. Absent: diastolic murmur, gallop, rubs, systolic murmur - GI/Abdominal GI/Abdominal exam: Present: normal bowel sounds, soft, no peritoneal signs. Absent: distended, tenderness - Extremities Exam Extremities exam: Present: warm, radial pulses palpable and symmetrical. Absent: calf tenderness, cyanotic, pedal edema - Neurological Exam Neurological exam: Present: CN II-XII intact, oriented X3, no focal deficits. Absent: pronater drift, facial droop, speech deficit - Skin Skin exam: Present: dry, intact Internal Medicine: Result - Labs CBC & Chem 7: 12/17/18 07:45 12/17/18 07:45 Consult Discharge Plan - Plan Referrals: Griffin Fraire MD [Partnered Physician] - 12/18/18 9:30 am ([place] 12/18/18 @ 09:30am, xrays to be performed today) NONE,PCP [Primary Care Provider] -
[2018-12-20] MEDS: cephALEXin 250 MG CAPSULE PO SCH ×3 (09:12→22:41)
[2018-12-20] MEDS: Torsemide 20 MG TABLET PO SCH (09:13)
[2018-12-20] MEDS: Apixaban 5 MG TABLET PO SCH ×2 (09:13→22:41)
[2018-12-20] MEDS: Cholecalciferol (D-3) 1,000 UNIT TABLET PO SCH (09:13)
[2018-12-20] MEDS: predniSONE 10 MG TABLET PO SCH ×2 (09:14→18:08)
[2018-12-20] MEDS: traMADol 50 MG TABLET PO PRN ×2 (09:19→22:47)
--- NOTE | 2018-12-20 12:00 | Internal Med Progress Note ---
Addendum entered and electronically signed by Bj Ennis MD 12/21/18 14:11: I have personally performed a face to face evaluation on this patient. I have r eviewed and agree with the care plan. History and Exam by me shows: The patient was evaluated by me yesterday but the note was not complete. This documentation is being completed today for that reason. Patient is without complaint and is tired after therapy. Otherwise, she is doing okay. She still continues to have right foot pain but feels this is better. Discussed care with other providers and/or nursing. Patient has no complaint of chest discomfort, dyspnea, orthopnea, palpitations, nausea or vomiting, constipation or diarrhea, other changes in bowel habits, difficulty with urination, rash or itching, or other new complaints, except as mentioned above. Review of systems is otherwise negative. Examination: (Except as mentioned above): General: In no apparent distress. Alert and oriented 3. Nondiaphoretic. Head: Atraumatic and normocephalic. Respiratory: No use of accessory muscles. Lungs are clear throughout. Normal airflow. Cardiovascular: Regular rate and rhythm without murmur appreciated. Abdomen: Bowel sounds are normal. No hepatosplenomegaly mass or tenderness appreciated. Obese and therefore difficult to palpate deeply. Extremities: No cyanosis clubbing or edema. Skin: Warm and non-diaphoretic with no new lesions noted. Original Note: Date of Encounter: 12/20/18 Time of Encounter: 11:59 - Assessment and plan (1) Non-STEMI (non-ST elevated myocardial infarction) Current Visit: Yes Status: Acute Assessment and plan: No acute issues. Patient denies any chest discomforts or palpitations. Vital signs are stable. We will continue with physical therapy. (2) Toe fracture Current Visit: Yes Status: Acute Assessment and plan: With complaints of continued pain to her right foot which she states is improving over the last several days. Patient continues to have walking boot to right foot. Patient has been bearing weight on right foot, but states that her pain increases when she bears weight.. We will continue with physical therapy. Patient states that her pain has been tolerable with current medications. Qualifiers: Encounter type: subsequent encounter Fracture type: closed Phalanx: unspecified phalanx Fracture alignment: nondisplaced Laterality: right Fracture healing: with routine healing Qualified Code(s): S92.404D - Nondisplaced unspecified fracture of right great toe, subsequent encounter for fracture with routine healing (3) Cardiomyopathy Current Visit: Yes Status: Chronic Assessment and plan: No acute issues. Patient has diminished breath sounds but otherwise denies any productive cough or dyspnea. Vital signs stable. We will continue with current medications. Qualifiers: Cardiomyopathy type: unspecified Qualified Code(s): I42.9 - Cardiomyopathy, unspecified (4) Diabetes Current Visit: Yes Status: Chronic Assessment and plan: No acute issues. Patient's glucose is been fairly well controlled. 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 Ventricular rate has been well controlled less than 100. We will continue with current medications. Qualifiers: Atrial fibrillation type: paroxysmal Qualified Code(s): I48.0 - Paroxysmal atrial fibrillation (6) Constipation Current Visit: Yes Status: Acute Assessment and plan: Patient with complaints of several days of constipation. Abdomen appears nonacute. Patient denies any nausea. Will review her scheduled laxatives. Qualifiers: Constipation type: unspecified constipation type Qualified Code(s): K59.00 - Constipation, unspecified - Time Spent With Patient less than 15 minutes - Subjective Interval history: Patient appears relaxed and currently denies any discomforts or shortness of breath. Patient does complain of continued pain to her right foot which she describes as a burning type pain. States that her pain has been improving over the last few days. Patient denies any decreased sensation. Patient states that physical therapy is been progressing well. Denies constipation - Constitutional Vitals: Temp Pulse Resp BP Pulse Ox 98.1 F 70 16 135/84 96 12/20/18 06:55 12/20/18 06:55 12/20/18 06:55 12/20/18 06:55 12/20/18 06:55 General appearance: Present: cooperative, A&O X 3, pleasant, obese, answers questions appropriately - Head Head exam: Present: atraumatic, normocephalic - Eye Eye exam: Present: PERRL, conjuntiva pink, sclera anicteric Pupils: Present: PERRL - Neck Neck exam general surgery: Present: supple, trachea midline. Absent: lymphadenopathy - Respiratory Respiratory exam: Present: CTAB. Absent: accessory muscle use, rales, rhonchi, wheezes - Cardiovascular Cardiovascular exam: Present: RRR, +S1, +S2. Absent: diastolic murmur, gallop, rubs, systolic murmur - GI/Abdominal GI/Abdominal exam: Present: normal bowel sounds, soft, no peritoneal signs. Absent: distended, tenderness - Extremities Exam Extremities exam: Present: warm, radial pulses palpable and symmetrical. Absent: calf tenderness, cyanotic, pedal edema - Neurological Exam Neurological exam: Present: CN II-XII intact, oriented X3, no focal deficits. Absent: pronater drift, facial droop, speech deficit - Skin Skin exam: Present: dry, intact Internal Medicine: Result - Labs CBC & Chem 7: 12/17/18 07:45 12/17/18 07:45 Consult Discharge Plan - Plan Referrals: Griffin Fraire MD [Partnered Physician] - 12/18/18 9:30 am ([place] 12/18/18 @ 09:30am, xrays to be performed today) Surya Finney MD [Non-Partnered Physician] - 12/27/18 2:00 pm ()
[2018-12-20] MEDS: Melatonin 3 MG TABLET PO PRN (22:41)
[2018-12-21 07:06] VITALS: BP 134/70
[2018-12-21] MEDS: cephALEXin 250 MG CAPSULE PO SCH (08:50)
[2018-12-21] MEDS: Torsemide 20 MG TABLET PO SCH (08:50)
[2018-12-21] MEDS: predniSONE 10 MG TABLET PO SCH (08:50)
[2018-12-21] MEDS: Apixaban 5 MG TABLET PO SCH (08:50)
[2018-12-21] MEDS: Cholecalciferol (D-3) 1,000 UNIT TABLET PO SCH (08:51)
[2018-12-21] MEDS: traMADol 50 MG TABLET PO PRN (08:55)
--- NOTE | 2018-12-21 13:03 | Discharge Summary ---
Addendum entered and electronically signed by Bj Ennis MD 12/21/18 14:09: I have personally performed a face to face evaluation on this patient. I have r eviewed and agree with the care plan. History and Exam by me shows: Patient still has foot pain but this is improving, day by day. She has no other complaints and states that her bowels are still somewhat constipated. I expressed the need for her to use laxative, nodules Colace which she asked for. I explained that she should use MiraLAX regularly to have a bowel movement at least every other day. The remainder of her questions were answered, prior to discharge. Follow-up as noted below. Discussed care with other providers and/or nursing. Patient has no complaint of chest discomfort, dyspnea, orthopnea, palpitations, nausea or vomiting, constipation or diarrhea, other changes in bowel habits, difficulty with urination, rash or itching, or other new complaints, except as mentioned above. Review of systems is otherwise negative. Examination: (Except as mentioned above): General: In no apparent distress. Alert and oriented 3. Nondiaphoretic. Head: Atraumatic and normocephalic. Respiratory: No use of accessory muscles. Lungs are clear throughout. Normal airflow. Cardiovascular: Regular rate and rhythm without murmur appreciated. Abdomen: Bowel sounds are normal. No hepatosplenomegaly mass or tenderness appreciated. Obese and therefore difficult to palpate deeply. Extremities: No cyanosis clubbing or edema. Skin: Warm and non-diaphoretic with no new lesions noted. Original Note: Date of Encounter: 12/21/18 Time of Encounter: 13:02 - Discharge Diagnosis (1) Non-STEMI (non-ST elevated myocardial infarction) Priority: Primary Status: Acute Comments: Patient was diagnosed with a non-STEMI RI during her admission at [facility] prior to transfer to this facility. A stress test which showed possible ischemia. Cardiology has elected to treat medically and a have patient follow- up in office. Patient has had no complaints of chest pain during his stay at this facility. Patient also has a history of cardiomyopathy with EF of 25%. We will discharge home on current medications with recommendations follow-up with cardiology and PCP (2) Toe fracture Priority: Secondary Status: Acute Comments: Patient still continues to have complaints of mild pain to her right foot which increases during weightbearing. Patient dissipated and physical therapy and progressed well. Continues to use walking boot. We will discharge home with a prescription for tramadol when necessary and continue on current prednisone dose. Patient recommended to follow up with Dr. Blanca, orthopedic surgeon. Patient to follow-up with family physician for evaluation and management of her cortical steroids. Qualifiers: Encounter type: subsequent encounter Fracture type: closed Phalanx: unspecified phalanx Fracture alignment: nondisplaced Laterality: right Fracture healing: with routine healing Qualified Code(s): S92.404D - Nondisplaced unspecified fracture of right great toe, subsequent encounter for fracture with routine healing (3) Cardiomyopathy Priority: Secondary Status: Chronic Comments: No issues during her stay. Patient has participated in physical therapy with no complaints of dyspnea or chest discomforts. We will continue on current medications at time of discharge with recommendations to continue follow-up with cardiology and PCP. Qualifiers: Cardiomyopathy type: unspecified Qualified Code(s): I42.9 - Cardiomyopathy, unspecified (4) Diabetes Priority: Secondary Status: Chronic Comments: No acute issues. Patient continues to have slight skull coverage of glucose, which has been fairly well-controlled during her stay at this facility. Patient to be discharged home with home medications and follow-up with PCP Qualifiers: Diabetes mellitus type: type 2 Diabetes mellitus [facility] insulin use: unspecified [facility] insulin use status Diabetes mellitus complication status: with unspecified complications Qualified Code(s): E11.8 - Type 2 diabetes mellitus with unspecified complications (5) Atrial fibrillation Priority: Secondary Status: Chronic Comments: No acute issues. Patient's heart rate remains irregular with controlled ventricular rate less than 100. Patient to continue on home medications after discharge. Patient to follow-up with cardiology Qualifiers: Atrial fibrillation type: paroxysmal Qualified Code(s): I48.0 - Paroxysmal atrial fibrillation Hospital course: Ms. Ferro is a 73 year old female, who presented to the emergency department at an [facility] after injuring her right fifth toe, which was found to be fractured. Patient initially had issues with pain control to the toe and during her initial workup was found to have a non-STEMI RI. Patient has a history of coronary artery disease and severe cardiomyopathy with a 25-35% ejection fraction. Patient also was diagnosed with a urinary tract infection which she currently continues coverage on. Patient also has a history of stage IV chronic renal disease. During her stay at [place], she continued to have moderate amount of pain, which was considered to be OA in nature. Patient was started on prednisone, for which she continues at this time. Patient's recovery at [facility] was uneventful and she was transferred to this facility for further rehabilitation due to deconditioning. Patient states that her pain is fairly well-controlled to her right foot with current medications. Right foot remains in a walking boot. Patient denies any current chest discomforts or palpitations. Denies any dyspnea or productive cough. Patient being DC'd to home with recommendations to continue therapy by [facility] services. Recommended to f/u with PCP for further management of prednisone dosing in Tx of OA. Will be discharged wiht Rx. Patient recommended to f/u with cardiology for further eval and managemet of CM, CAD and Afib. Discharge discussed with: patient Time spent discussing smoking cessation with patient: 3 to 10 minutes - Time Spent with Patient Total time spent providing and/or coordinating discharge services: Less than 30 minutes - Discharge Medications Home Medications: Meloxicam [Mobic] 15 mg PO DAILY 01/28/16 [History] Potassium Chloride [K-Tab ER] 20 meq PO DAILY 01/28/16 [History] Torsemide [Demadex] 50 mg PO DAILY 01/28/16 [History] Apixaban [Eliquis] 5 mg PO BID 04/08/17 [History] Carvedilol [Coreg] 12.5 mg PO BIDWM 04/08/17 [History] OxyCODONE/APAP 7.5/325 [Percocet 7.5/325 MG] 1 each PO Q4HR PRN 04/08/17 [History] OxyCODONE/APAP 7.5/325 [Percocet 7.5/325 MG] 2 each PO Q4HR PRN 04/08/17 [History] Allergies/Adverse Reactions: Allergy/AdvReac Type Severity Reaction Status Date / Time Penicillins Allergy Hives Verified 01/28/16 17:57 Date of admission: 12/13/18 15:11 Primary care physician: PCP NONE Consults: 12/14/18 08:03 Consult to Physical Therapy [CONS] Routine Comment: Evaluate, develop and implement POC Reason for Consult: rehab Does patient have active BEDREST order?: No Is patient medically & hemodynamically stable?: Yes Patient assessed for mobility or mobilized this visit?: Yes OT [Consult to Occupational Therapy] [CONS] Routine Comment: Evaluate, develop and implement POC Reason for Consult: rehab Does patient have active BEDREST order?: No Is patient medically & hemodynamically stable?: Yes Patient assessed for mobility or mobilized this visit?: Yes Discharging clinician: Bj Ennis - Constitutional Vitals: Temp Pulse Resp BP Pulse Ox 97.8 F 71 16 134/70 96 12/21/18 07:05 12/21/18 07:05 12/21/18 07:05 12/21/18 07:05 12/21/18 07:05 General appearance: Present: cooperative, A&O X 3, pleasant, obese, answers questions appropriately - Head Head exam: Present: atraumatic, normocephalic - Eye Eye exam: Present: PERRL, conjuntiva pink, sclera anicteric Pupils: Present: PERRL - Neck Neck exam general surgery: Present: supple, trachea midline. Absent: lymphadenopathy - Respiratory Respiratory exam: Present: CTAB. Absent: accessory muscle use, rales, rhonchi, wheezes Additional comments: Lungs are CTA to upper mantilla and diminished bases. RR is relaxed - Cardiovascular Cardiovascular exam: Present: irregular rhythm, RRR, +S1, +S2. Absent: diastolic murmur, gallop, rubs, systolic murmur - GI/Abdominal GI/Abdominal exam: Present: normal bowel sounds, soft, no peritoneal signs. Absent: distended, tenderness - Extremities Exam Extremities exam: Present: warm, radial pulses palpable and symmetrical. Absent: calf tenderness, cyanotic, pedal edema Additional comments: Right foot in walking boot. No obvious injury or deformity noted. - Neurological Exam Neurological exam: Present: CN II-XII intact, oriented X3, no focal deficits. Absent: pronater drift, facial droop, speech deficit - Skin Skin exam: Present: dry, intact - Patient Status Disposition: Home Health Service Condition: Good Functional capacity at discharge: uses cane/walker Overall status at discharge: patient is progressing back to baseline - Discharge Instructions Follow Up With: Griffin Fraire MD [Partnered Physician] - 12/18/18 9:30 am ([place] 12/18/18 @ 09:30am, xrays to be performed today) Surya Finney MD [Non-Partnered Physician] - 12/27/18 2:00 pm () - Diet and Activity Activity: ambulate only with your walker, as per physical therapy, increase activity as tolerated Diet: diabetic diet, low fat, low cholesterol, low salt diet
--- NOTE | 2018-12-21 13:15 | Physician Discharge Referral ---
Addendum entered and electronically signed by Bj Ennis MD 12/21/18 14:09: Original Note: Home Health/Hosp Referral Info Transfer to: Home Health Provider in Charge Post Discharge: PCP - Diagnosis (1) Non-STEMI (non-ST elevated myocardial infarction) Priority: Primary Status: Acute (2) Toe fracture Priority: Secondary Status: Acute (3) Cardiomyopathy Priority: Secondary Status: Chronic (4) Diabetes Priority: Secondary Status: Chronic (5) Atrial fibrillation Priority: Secondary Status: Chronic - Respiratory Orders Oxygen / L per min Smoking Cessation: Smoking cessation has been advised. For more information, call the [place] Tobacco Quit Line at 5-389-ZYHA-NOW. - Diet/Nutrition Diet/Nutrition Orders: No Added Salt (ADIA), Cardiac, No Concentrated Sweets - Activity Activity Orders: Up ad louie, Walker - Services Needed Following services are medically necessary services: Nursing, Physical Therapy - Transfer Medications Home Medications: Meloxicam [Mobic] 15 mg PO DAILY 01/28/16 [History] Potassium Chloride [K-Tab ER] 20 meq PO DAILY 01/28/16 [History] Torsemide [Demadex] 50 mg PO DAILY 01/28/16 [History] Apixaban [Eliquis] 5 mg PO BID 04/08/17 [History] Carvedilol [Coreg] 12.5 mg PO BIDWM 04/08/17 [History] OxyCODONE/APAP 7.5/325 [Percocet 7.5/325 MG] 1 each PO Q4HR PRN 04/08/17 [Histo ry] OxyCODONE/APAP 7.5/325 [Percocet 7.5/325 MG] 2 each PO Q4HR PRN 04/08/17 [History] Allergies/Adverse Reactions: Allergy/AdvReac Type Severity Reaction Status Date / Time Penicillins Allergy Hives Verified 01/28/16 17:57 Certification: Further, I certify that my clinical findings support that this patient is homebound (i.e. absences from home require considerable and taxing effort and are for medical reasons or sabianist services or infrequently or short duration when for other reasons) because: Homebound Reason: Leaving home requires considerable and taxing effort due to condition Attestation: My signature below is to certify that this patient is under my care and that I, or nurse practitioner, or a physician's secretary administrative assistant working with me, has a [id number] encounter with this patient.
== END 2018-12-21 14:30 | disposition home health service (06) | DRG 281 ==
LOC: INPGRE 15:11